=== PATIENT | male | born 1975 | race Caucasian/White ===

== ENCOUNTER 2020-11-14 19:55 | Emergency (ER) | payer SELFPAY ==
[~2020-11-14 19:55] MED LIST: ANTIVERT25 MG PO; BACLOFEN 10MG T10 MG PO; BACTROBAN NASAL1 GM; NAPROXEN500 MG PO; PERCOCET 5-3251 EACH PO; PREDNISONE 20MG20 MG PO; ZYRTEC10 MG PO
[2020-11-14 21:14] LABS: EOSINOPHIL 7.1 % (0-5); HCT 46.7 % (42.0-52.0); HGB 15.7 g/dl (13.2-18.0); LYMPHOCYTE 30.6 % (15-48); MCH 32.4 pg (25.0-31.0); MCHC 33.6 g/dL (32.0-36.0); MCV 96.3 fL (78.0-100.0); MONOCYTE 9.5 % (0-12); MPV 10.4 fL (6.0-9.5); NEUTROPHIL 51.6 % (41-80); NRBC 0; PLT 177 K/uL (150-400); RBC 4.85 M/uL (4.70-6.00); RDW 12.9 % (11.5-14.0)
[2020-11-14 21:26] LABS: ALBUMIN 3.9 g/dL (3.4-5.0); BILIRUBIN - TOTAL 0.3 mg/dL (0.2-1.0); BUN/CREAT RATIO (CALC) 12.5 RATIO; C-REACTIVE PROTEIN 0.2 mg/dL (<=0.90); CREATININE 0.64 mg/dL (0.67-1.17); GLOBULIN (CALCULATION) 4.2 g/dL; TOTAL PROTEIN 8.1 g/dL (6.4-8.2)
[2020-11-14] MEDS ORDERED: PERCOCET 5-3251 EACH PO (23:48)
[2020-11-14] MEDS ORDERED: PREDNISONE 20MG20 MG PO (23:48)
== END 2020-11-15 00:15 | disposition home or self-care (01) ==
LOC: FER 19:55
PROVIDERS: Emergency Medicine Emergency Medical Services
DX: M25.462 Effusion, left knee (principal); R26.2 Difficulty in walking, not elsewhere classified; I10 Essential (primary) hypertension; F17.200 Nicotine dependence, unspecified, uncomplicated; Z79.899 Other long term (current) drug therapy
CPT/HCPCS: 36415; 73564; 80053; 85025; 85379; 86140; 93971; J1885